=== PATIENT | female | born 1960 | race Two or more races ===

== ENCOUNTER 2020-01-03 19:13 | Inpatient (IN) | payer MEDICAID, OTHER ==
[2020-01-03 22:38] VITALS: BP 109/72
[2020-01-03] MEDS ORDERED: Maalox 30 mL Cup PO PRN (22:44)
[2020-01-03] MEDS ORDERED: Magnesium Hydroxide (MOM) 30 mL UDC PO PRN (22:44)
[2020-01-04] MEDS: Levothyroxine 0.1 Mg Tab PO SCH (07:08)
[2020-01-04] MEDS: Multivitamin Tab PO SCH (08:49)
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
[2020-01-05] MEDS: Levothyroxine 0.1 Mg Tab PO SCH (06:46)
[2020-01-05] MEDS: Multivitamin Tab PO SCH (08:26)
[2020-01-06] MEDS: Levothyroxine 0.1 Mg Tab PO SCH (06:41)
[2020-01-06] MEDS: Multivitamin Tab PO SCH (08:53)
[2020-01-07] MEDS: Multivitamin Tab PO SCH (08:45)
[2020-01-07] MEDS: Levothyroxine 0.1 Mg Tab PO SCH (08:48)
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
--- NOTE | 2020-01-07 17:36 | Progress Notes ---
DATE: 01/07/2020 FOLLOWUP PROGRESS NOTE Case was discussed with staff of the patient, reviewed records. The patient continues to be internally preoccupied, unpredictable, impulsive, multiple somatic complaints. Continues to be unpredictable, impulsive, needing redirection. No side effects with the medication, no sedation, no nausea, no extrapyramidal symptoms. Sleep and appetite varies. We will continue to work with the patient in group therapy, milieu therapy, and adjust the medications as needed. JOB# [id number]
[2020-01-08] MEDS: Levothyroxine 0.1 Mg Tab PO SCH (06:29)
[2020-01-08] MEDS: Multivitamin Tab PO SCH (08:45)
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
[2020-01-09] MEDS: Levothyroxine 0.1 Mg Tab PO SCH (06:45)
[2020-01-09] MEDS: Multivitamin Tab PO SCH (08:40)
--- NOTE | 2020-01-09 11:41 | Progress Notes ---
DATE: 01/09/2020 SUBJECTIVE: A 59-year-old female, currently in the hospital, apparently paranoid, depressed, feels someone is trying to harm her. On [id number], the patient is poorly oriented. She continues to tell me that she feels someone is after her. She is awake, standing right in the middle of her room, just staring at the wall. Still fearful that somebody may be after her. Fair sleep with director of early childhood education awakening. Staff noting points of forgetfulness, confusion noted. Poor orientation on exam, just ruminates about somebody being after her. Medications were reviewed. Labs reviewed. Vitals were reviewed. Blood pressure 121/66, pulse of 72. ASSESSMENT: A 59-year-old female with ongoing confusional state, forgetfulness, paranoia is noted. PLAN: Time was spent discussing with nursing staff. Nursing notes were reviewed. Medications were reviewed. Time spent with the patient, currently on dosing of Prozac, Seroquel. We will continue to monitor. Consider dose titration of the medication. JOB# [id number]
[2020-01-10] MEDS: Levothyroxine 0.1 Mg Tab PO SCH (06:39)
[2020-01-10] MEDS: Multivitamin Tab PO SCH (08:30)
--- NOTE | 2020-01-10 19:46 | Progress Notes ---
DATE: 01/10/2020 Case was discussed with staff of the patient, reviewed records. The patient is Sinhala-speaking. Continues to appear to be confused. Continues to be depressed. Continues to be paranoid and believes somebody is trying to harm her. She believes somebody is after her. Her vital signs are stable. Gait is normal. She continues to be paranoid and delusional. No side effects with the medication, no sedation, no nausea, no extrapyramidal symptoms. I will be increasing her Depakote to 250 mg 3 times a day and to help improve her agitated with bizarre behavior. I will continue outpatient group therapy, milieu therapy, and adjust medications as needed. JOB# [id number]
[2020-01-11] MEDS: Levothyroxine 0.1 Mg Tab PO SCH (06:49)
[2020-01-11] MEDS: Multivitamin Tab PO SCH (08:13)
--- NOTE | 2020-01-11 15:03 | Progress Notes ---
DATE: 01/11/2020 Case was discussed with staff of the patient, reviewed records. The patient continues to have poor insight, unpredictable, impulsive, needing redirection. She is sleeping better, eating better. The patient was acting out, naked, prior to her coming here while she was in the Emergency Room. Continues to be unable to make safe plan for self-care. She tolerated increase in Depakote with no side effects, no sedation, no nausea, no extrapyramidal symptoms with Seroquel 400 mg at bedtime and she is also Prozac 20 mg a day. We will continue outpatient group therapy, milieu therapy, adjust medication as needed. JOB# [id number]
[2020-01-12] MEDS: Levothyroxine 0.1 Mg Tab PO SCH (06:50)
[2020-01-12] MEDS: Multivitamin Tab PO SCH (09:03)
--- NOTE | 2020-01-12 10:43 | Progress Notes ---
DATE: 01/12/2020 Case was discussed with staff of the patient, reviewed records. The patient continues to be internally preoccupied. Continues to have poor insight, continues to be unable to make safe plan for self-care, easily agitated. She continues to have episodes, she gets upset, overwhelmed. No side effects with the medication, no sedation, no nausea, no extrapyramidal symptoms. We will continue outpatient group therapy, milieu therapy, and adjust medications as needed. JOB# [id number]
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
[2020-01-13] MEDS: Levothyroxine 0.1 Mg Tab PO SCH (06:38)
[2020-01-13] MEDS: Multivitamin Tab PO SCH (08:37)
--- NOTE | 2020-01-13 11:43 | Progress Notes ---
DATE: 01/13/2020 Case was discussed with staff of the patient, reviewed records. The patient is responding better to redirection. She is able to assist herself better. She is sleeping well, eating well. No side effects with the medication, no sedation, no nausea, no extrapyramidal symptoms. However she continues to look disheveled, disorganized, internally preoccupied. She tolerated increase in Depakote with no side effects. We will continue outpatient group therapy, milieu therapy, adjust medication as needed. JOB# [id number]
[2020-01-14] MEDS ORDERED: Haloperidol Lactate 5 mg/mL 1mL Vial IM ONE (05:30)
[2020-01-14] MEDS: Levothyroxine 0.1 Mg Tab PO SCH (06:47)
[2020-01-14] MEDS: Multivitamin Tab PO SCH (08:21)
--- NOTE | 2020-01-14 14:39 | Progress Notes ---
DATE: 01/14/2020 Case was discussed with staff of the patient's medical records. The patient had communicated this morning. The patient had hard to redirect. She continues to be unpredictable, impulsive, needing redirection. She has been compliant with the medication with no side effects, no sedation, no nausea, no extrapyramidal symptoms. I will be increasing Seroquel dose to 450 mg at bedtime to help improve her psychotic, agitated behavior and we will continue outpatient group therapy, milieu therapy, adjust medication as needed. JOB# [id number]
[2020-01-14] MEDS: QUEtiapine Fumarate 400 MG, QUEtiapine Fumarate 50 MG PO SCH (21:02)
[2020-01-15] MEDS: Levothyroxine 0.1 Mg Tab PO SCH (06:56)
[2020-01-15] MEDS: Multivitamin Tab PO SCH (08:05)
[2020-01-15] MEDS: QUEtiapine Fumarate 400 MG, QUEtiapine Fumarate 50 MG PO SCH (21:11)
--- NOTE | 2020-01-15 23:20 | Progress Notes ---
DATE: 01/15/2020 PSYCHIATRIC FOLLOWUP NOTE The patient was seen and evaluated. The patient's chart was reviewed. IDENTIFYING DATA: A 59-year-old female was brought in here from the ER. She was kicking during the assessment. She is talking at hyperverbal and delusional. Medication reconciliation reviewed, Depakote, Prozac, and Seroquel. Overnight ____ for emergency medication ____ on 01/14/2020. Today on [id number] evaluation, the patient presents disorganized, incoherent statements and very suspicious of who ____ she has not seen me. I discussed with her and validated that I am the covering physician over the weekend and then refuses to be interviewed. ASSESSMENT AND PLAN: Psychotic, disorganized, who continues to present very suspicious. We will continue with the recent increase of Seroquel. JOB# [id number]
[2020-01-16] MEDS ORDERED: Haloperidol Lactate 5 mg/mL 1mL Vial IM ONE (00:43)
[2020-01-16] MEDS: Levothyroxine 0.1 Mg Tab PO SCH (07:00)
[2020-01-16] MEDS: Multivitamin Tab PO SCH (09:13)
--- NOTE | 2020-01-16 19:17 | Progress Notes ---
DATE: SUBJECTIVE: Overnight, required emergent medications as she was pacing, kicking staff. Today on [id number]-gryu evaluation, the patient continues to verbally threaten including the doctor ____ I am being here, it is time for me to leave. When attempted to redirect her into her aggression overnight, she becomes more irritable and unable to follow through. ASSESSMENT AND PLAN: History of schizophrenia, who continues to present easily agitated and needing emergent medications early as last night ____ state. JOB# [id number]
[2020-01-16] MEDS: QUEtiapine Fumarate 400 MG, QUEtiapine Fumarate 50 MG PO SCH (20:56)
[2020-01-17] MEDS: Levothyroxine 0.1 Mg Tab PO SCH (06:51)
[2020-01-17] MEDS: Multivitamin Tab PO SCH (08:30)
--- NOTE | 2020-01-17 16:34 | Progress Notes ---
DATE: 01/17/2020 Case was discussed with staff of the patient, reviewed records. The patient is reported by staff to have been more redirectable, sleeping better, eating better. No side effects with the medication, no sedation, no nausea and no extrapyramidal symptoms. Continues to look somewhat disheveled, disorganized; however, redirectable and staff not sure if this particular level of functioning was discussed with the family prior to discharge plan and we will continue to work with the patient in group therapy, milieu therapy, adjust the medication as needed. JOB# [id number]
[2020-01-17] MEDS: QUEtiapine Fumarate 400 MG, QUEtiapine Fumarate 50 MG PO SCH (21:06)
[2020-01-18] MEDS: Levothyroxine 0.1 Mg Tab PO SCH (06:29)
[2020-01-18] MEDS: Multivitamin Tab PO SCH (08:22)
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
== END 2020-01-18 12:45 | disposition home or self-care (01) | DRG 885 ==
LOC: GERO 21:47
PROVIDERS: ADMIT Psychiatry & Neurology Psychiatry; ATTEND Psychiatry & Neurology Psychiatry
DX: F31.9 Bipolar disorder, unspecified (principal); F29 Unspecified psychosis not due to a substance or known physiological condition; F20.9 Schizophrenia, unspecified; E78.5 Hyperlipidemia, unspecified; E03.9 Hypothyroidism, unspecified; I10 Essential (primary) hypertension; Z88.8 Allergy status to other drugs, medicaments and biological substances; Z79.899 Other long term (current) drug therapy
CPT/HCPCS: 82948-90; 83036-90; 90899; G0410; J1200; J1630; J2060; Z7610